=== PATIENT | female | born 1980 | race African-American/Black ===

== ENCOUNTER 2016-06-17 10:54 | Emergency (ER) | payer OTHER ==
[~2016-06-17 10:54] MED LIST: AMOX1TAB61 PO; CLIN300C86 PO; FURO-68 PO; FURO-69 PO; HYDR-2762 PO; HYDR-971 PO; LISI-334 PO; LISI10TA2 PO; NYST30PO9 TP; OXYC-323 PO; POTA10TA31 PO; POTA20TA4 PO; TRAM50TA PO
[2016-06-17] MEDS ORDERED: HYDR-971 PO (11:43)
[2016-06-17] MEDS ORDERED: SULF1TAB24 PO (11:43)
[2016-06-17 11:50] VITALS: BP 158/96
--- NOTE | 2016-06-17 12:21 | ED.ADGEN ---
Past History Past Medical History: Anxiety, Bronchitis, COPD, Hypertension Past Surgical History: No Surgical History Smoking: Less than 1pk/day Alcohol Use: Rarely Drug Use: None Adult General HPI HPI Patient is a 35-year-old female presents emergency department complaining of a wound to her left leg. Patient has a history of chronic lymphedema and poor circulation to the area. She states that when may benefit for some time which she just started noticing the drainage yesterday. She denies any purulence but has noticed fluid from the wound. Denies any known trauma or injury to the area. Review of Systems Review of Systems Constitutional: Denies fever or chills [] Eyes: Denies change in visual acuity, redness, or eye pain [] HENT: Denies nasal congestion or sore throat [] Respiratory: Denies cough or shortness of breath [] Cardiovascular: No additional information not addressed in HPI [] GI: Denies abdominal pain, nausea, vomiting, bloody stools or diarrhea [] : Denies dysuria or hematuria [] Musculoskeletal: Denies back pain or joint pain [] Integument: Denies rash or skin lesions [] Neurologic: Denies headache, focal weakness or sensory changes [] Endocrine: Denies polyuria or polydipsia [] Allergies Allergies Allergies Coded Allergies Type Severity Reaction Last Updated Verified ketorolac Allergy Intermediate Palpitations 04/10/15 Yes morphine Allergy Intermediate Nausea and Vomiting 06/26/13 Yes tramadol Allergy Intermediate Palpitations 04/10/15 Yes Iodinated Contrast Media - IV Dye Allergy Mild Hives 04/20/15 Yes Physical Exam Physical Exam Constitutional: Well developed, well nourished, no acute distress, non-toxic appearance. [] HENT: Normocephalic, atraumatic, bilateral external ears normal, oropharynx moist, no oral exudates, nose normal. [] Eyes: PERRLA, EOMI, conjunctiva normal, no discharge. [] Neck: Normal range of motion, no tenderness, supple, no stridor. [] Cardiovascular:Heart rate regular rhythm, no murmur [] Lungs & Thorax: Bilateral breath sounds clear to auscultation [] Abdomen: Bowel sounds normal, soft, no tenderness, no masses, no pulsatile masses. [] Skin: Warm, dry, no erythema, no rash. 2 x 2 cm area of open wound on the left anterior tibia. There is granulation tissue and I do not see any purulence at this time [] Back: No tenderness, no CVA tenderness. [] Extremities: No tenderness, no cyanosis, no clubbing, ROM intact, no edema. [] Neurologic: Alert and oriented X 3, normal motor function, normal sensory function, no focal deficits noted. [] Psychologic: Affect normal, judgement normal, mood normal. [] EKG EKG [] Radiology/Procedures Radiology/Procedures [] Course & Med Decision Making Course & Med Decision Making Pertinent Labs and Imaging studies reviewed. (See chart for details) Although I am not commenced at the areas infected currently, the patient is high risk for cellulitis and infection. Consequently I am going to cover her with some Bactrim. She does have a follow-up appointment with her primary care physician already scheduled in the next couple of days. [] Final Impression Final Impression Cellulitis [] Problems: Dragon Disclaimer Dragon Disclaimer This electronic medical record was generated, in whole or in part, using a voice recognition dictation system. PRIMITIVO CARMEN MD Jun 17, 2016 12:21
== END 2016-06-17 11:50 | disposition home or self-care (01) ==
LOC: ER 10:54
DX: L03.116 Cellulitis of left lower limb (principal); J44.9 Chronic obstructive pulmonary disease, unspecified; I10 Essential (primary) hypertension; Z87.891 Personal history of nicotine dependence; Z88.5 Allergy status to narcotic agent; Z88.8 Allergy status to other drugs, medicaments and biological substances; Z88.6 Allergy status to analgesic agent; Z91.041 Radiographic dye allergy status
CPT/HCPCS: 99283

== ENCOUNTER 2016-07-19 13:32 | Emergency (ER) | payer MEDICAID, OTHER ==
[~2016-07-19] VITALS: Ht 165.1 cm; Wt 146.4 kg
[~2016-07-19 13:32] MED LIST changes: +SULF1TAB24 PO
[2016-07-19 13:35] VITALS: BP 154/110
--- NOTE | 2016-07-19 14:01 | PHYS DOC ---
Past History Past Medical History: Anxiety, Bronchitis, COPD, Hypertension Past Surgical History: No Surgical History Smoking: Less than 1pk/day Alcohol Use: Rarely Drug Use: None Adult General Chief Complaint Chief Complaint: LOWER EXT PAIN HPI HPI Patient is a 35-year-old female complaining of exacerbation of pain and drainage from her left leg. Patient has chronic leg edema and related skin changes. Patient states that she has noticed a recent worsening smell, increased pain, and drainage from an area on the anterior lower leg. She said she was here a few weeks ago with a similar problem and got a prescription for Bactrim which did help but the problem is back again. She does not have a primary medical doctor and has never been seen in wound clinic. Patient also complains of pain in her tooth. She last saw a dentist about one month ago but it was for another tooth. This tooth pain started recently. Patient denies fever or chills. Review of Systems Review of Systems Constitutional: Denies fever or chills [] Respiratory: Denies cough or shortness of breath [] Cardiovascular: Bilateral lower extremity edema is chronic and unchanged Musculoskeletal: Denies back pain or joint pain [] Integument: Skin changes on the lower legs are chronic. Allergies Allergies Allergies Coded Allergies Type Severity Reaction Last Updated Verified ketorolac Allergy Intermediate Palpitations 04/10/15 Yes morphine Allergy Intermediate Nausea and Vomiting 06/26/13 Yes tramadol Allergy Intermediate Palpitations 04/10/15 Yes Iodinated Contrast Media - IV Dye Allergy Mild Hives 04/20/15 Yes Physical Exam Physical Exam Constitutional: Well developed, well nourished, morbidly obese, alert, mentating normally HENT: Normocephalic, atraumatic, bilateral external ears normal, oropharynx moist, no oral exudates, nose normal. Patient indicates tooth pain in the right upper posterior molar. I do not see any DKA, any surrounding cellulitis or evidence of infection, no visible abnormality of that tooth or surrounding gum. Eyes: conjunctiva normal, no discharge. [] Neck: Normal range of motion, no stridor. [] Skin: Warm, dry, no erythema, no rash. [] Extremities: Left leg below the knee has extreme lymphedema that appears chronic , severe, chronic discoloration and lichenification, an area of discolored skin on the anterior middle lower leg that the patient indicates appears new or different, does not appear to have findings of acute cellulitis, no drainage, no acute abnormality is noted. Neurologic: Alert and oriented X 3, normal motor function, normal sensory function, no focal deficits noted. [] EKG EKG [] Radiology/Procedures Radiology/Procedures [] Course & Med Decision Making Course & Med Decision Making Pertinent Labs and Imaging studies reviewed. (See chart for details) 35-year-old female with chronic very severe lymphedema of the legs with significant chronic skin changes and recurrent cellulitis presents with a subjective change in appearance of the area on the left lower leg. Although I do not personally see objective evidence of cellulitis, the patient does complain of a change so I advised her we can give her a course of Bactrim. She also complained of tooth pain and I urged her to see a dentist as soon as possible. Elevation, ibuprofen as needed for pain. Patient states that she does tolerate ibuprofen safely. I urged her to get a primary care physician as soon as possible. [] Dragon Disclaimer Dragon Disclaimer This chart was dictated in whole or in part using Voice Recognition software in a busy, high-work load, and often noisy Emergency Department environment. It may contain unintended and wholly unrecognized errors or omissions. Departure Departure: Impression: Primary Impression: Cellulitis Additional Impression: Dentalgia Disposition: HOME, SELF-CARE Condition: STABLE Referrals: BLOSSOM CARTER (PCP) Additional Instructions: For chronic left leg problems, as we discussed, asked your primary care physician for a referral to wound management. Stay off of the leg and keep it elevated. Because you have noticed a change and the appearance, we will prescribe Bactrim, antibiotic. Also I recommend that you purchase chlorhexidine soap [id number] and use that daily when you shower or bathe to keep the bacteria count down on your skin. For dental pain, as we discussed, see dentist as soon as possible. For pain, ibuprofen 800 mg every 8 hours as needed. Scripts Sulfamethoxazole/Trimethoprim (Bactrim Ds Tablet)1 Each Tablet1 Tab PO BID #20 TAB For leg infection Prov:CHANTELL RAY MD 07/19/16 Problem Qualifiers CHANTELL RAY MD Jul 19, 2016 14:01
[2016-07-19] MEDS ORDERED: SULF1TAB24 PO (14:02)
== END 2016-07-19 14:15 | disposition home or self-care (01) ==
LOC: ER 13:32
DX: L03.116 Cellulitis of left lower limb (principal); K08.89 Other specified disorders of teeth and supporting structures; I10 Essential (primary) hypertension; F17.200 Nicotine dependence, unspecified, uncomplicated; J44.9 Chronic obstructive pulmonary disease, unspecified; Z88.5 Allergy status to narcotic agent; Z88.8 Allergy status to other drugs, medicaments and biological substances; Z88.6 Allergy status to analgesic agent; Z91.041 Radiographic dye allergy status
CPT/HCPCS: 99283

== ENCOUNTER 2016-09-10 12:58 | Emergency (ER) | payer MEDICAID, OTHER ==
[~2016-09-10 12:58] MED LIST changes: +CLIN300C8 PO; -CLIN300C86 PO; +NYST15PO9 TP; -NYST30PO9 TP
[2016-09-10] MEDS ORDERED: BACI1OIN5 TP (13:31)
--- NOTE | 2016-09-10 13:31 | PHYS DOC ---
Past History Past Medical History: Hypertension Past Surgical History: No Surgical History Smoking: Less than 1pk/day Alcohol Use: None Drug Use: None Adult General Chief Complaint Chief Complaint: LOWER EXT PAIN HPI HPI 36-year-old female presenting to the emergency department today with a wound on her left valente. She reports this wound coming going throughout the last 6 months. She reports it gets better sometimes and over the past week or so it has gotten worse this time. She uses an over the counter topical ointment and dressings. She describes the pain in the wound that is moderate intermittent and worse with walking. She denies fevers or chills and denies any other symptoms. Review of systems is negative for chest pain shortness of breath abdominal pain fevers headaches nausea or vomiting. All other review of systems is negative unless otherwise noted in history of present illness. ED course: 36-year-old female presenting to the emergency department with a left chronic diabetic vs vascular wound. The patient denies having diabetes however does not remember which testing performed to check. I recommended the patient be seen in our wound care clinic and referred her to them for chronic wound care management. Until then, the patient continues topical bacitracin ointment and clean sterile dressings changed twice a day. The patient was then discharged home in stable condition. They were to return if their symptoms worsened or if they were concerned for any reason. [id number] discharge instructions and return precautions were given. Patient's questions were answered to their satisfaction. Patient is comfortable plan. Review of Systems Review of Systems SEE ABOVE. Allergies Allergies Allergies Coded Allergies Type Severity Reaction Last Updated Verified ketorolac Allergy Intermediate Palpitations 04/10/15 Yes morphine Allergy Intermediate Nausea and Vomiting 06/26/13 Yes tramadol Allergy Intermediate Palpitations 04/10/15 Yes Iodinated Contrast Media - IV Dye Allergy Mild Hives 04/20/15 Yes Physical Exam Physical Exam Constitutional: Well developed, well nourished, no acute distress, non-toxic appearance. [] HENT: Normocephalic, atraumatic, bilateral external ears normal, oropharynx moist, no oral exudates, nose normal. [] Eyes: PERRLA, EOMI, conjunctiva normal, no discharge. [] Neck: Normal range of motion, no tenderness, supple, no stridor. [] Cardiovascular:Heart rate regular rhythm, no murmur [] Lungs & Thorax: Bilateral breath sounds clear to auscultation [] Abdomen: Bowel sounds normal, soft, no tenderness, no masses, no pulsatile masses. [] Skin: The patient has a large wound that is approximately 8 cm x 8 cm on the anterior tibial region with macerated tissue. There is no associated cellulitis or erythema. The patient's legs are morbidly obese. The wound does not track down to the bone. It appears more chronic than acute in nature. Otherwise no other rashes noted. Back: No tenderness, no CVA tenderness. [] Extremities: No tenderness, no cyanosis, no clubbing, ROM intact, no edema. [] Neurologic: Alert and oriented X 3, normal motor function, normal sensory function, no focal deficits noted. [] Psychologic: Affect normal, judgement normal, mood normal. [] EKG EKG [] Radiology/Procedures Radiology/Procedures [] Course & Med Decision Making Course & Med Decision Making Pertinent Labs and Imaging studies reviewed. (See chart for details) [] Dragon Disclaimer Dragon Disclaimer This chart was dictated in whole or in part using Voice Recognition software in a busy, high-work load, and often noisy Emergency Department environment. It may contain unintended and wholly unrecognized errors or omissions. Departure Departure: Impression: Primary Impression: Pain, foot, left, chronic Additional Impression: Leg wound, left Disposition: 01 HOME, SELF-CARE Condition: STABLE Referrals: BLOSSOM CARTER (PCP) Patient Instructions: Wound Care, [id number], Wound Check Additional Instructions: Thank you for allowing us to participate in your care today. Followup with our wound clinic. See below: [facility] has recently opened the first phase of its advanced Wound Care Center, providing much needed expert wound care for area patients close to home. There were no other wound clinics in the surrounding communities , making it necessary for patients to commute outside the area for treatments several times a week. The Center, located in [address] of the [facility] on the [facility], the facility includes four examination rooms where patients receive care Mondays through Fridays, 8 a.m. to 4 p.m. Patient appointments can be scheduled at [phone]. "There has been a huge need in our community for this service," says Maria Ines Contreras, [employer]. "According to the [place] [employer], there are more than 30,000 diabetics in [facility] combined, with approximately 5100 of those having chronic wounds. Now these patients can receive their care without leaving their community," Ben says. She also notes that there are plans to add two hyperbaric chambers for more intense treatments in early 2016. Many wound care patients often have other serious health conditions that complicate their medical treatment. "Because these patients can require complex medical care, it is critical we work as a team with the patient's primary care provider to help them heal," Ben says. Geri Mixon R.N., B.S.N., C.W.C.N., is the certified wound care nurse who staffs the center. Certification ensures that she is knowledgeable and qualified to provide this specialized care. Patrick Apodaca MD, general surgeon, provides medical supervision for patients. Because this type of wound care takes place over weeks - even months- the care team often experiences a special song with patients during the treatment process. "I'm excited about the opportunity to be part of our wound care team," says Oral. "It will be very gratifying to work with our patients to heal their wounds." Typical diagnoses seen in the [facility] include: Venous/arterial/lower extremity ulcers Diabetic foot ulcers Pressure ulcers (bed sores) Non-healing surgical wounds Autoimmune wounds Minor fernando Treatments available include: Wound debridement Dressing changes Compression therapy Physician visits Wound vacs Advanced wound care products Bioengineered skin tissues For more information about the [facility] [place], call , or visit [email or web address]. Call your Primary Doctor tomorrow and inform them of your visit today. If you do not have a primary care provider you can ask for a list of our primary care providers. Return to the emergency department you have any new or concerning findings. This should be evaluated by the primary care physician and any necessary consulting services for continued management within a few days after discharge. Return to emergency room if you have any new or concerning symptoms including but not limited to fever, chills, nausea, vomiting, intractable pain, any new rashes, chest pain, shortness of air, uncontrolled bleeding, difficulty breathing, and/or vision loss. Scripts Bacitracin Zinc (Bacitracin Zinc) 1 Each Oint..ea. 1 EACH TP BID for 5 Days, [facility] Prov: CHRISSIE WARD MD 09/10/16 Problem Qualifiers CHRISSIE WARD MD Sep 10, 2016 13:31
[2016-09-10] MEDS ORDERED: HYDR-2758 PO (13:41)
[2016-09-10] MEDS: HYDROcodone/APAP 5/325MG 1 TAB TABLET PO ONE (14:00)
[2016-09-10 14:52] VITALS: BP 151/100
== END 2016-09-10 14:56 | disposition home or self-care (01) ==
LOC: ER 12:58
DX: S81.802A Unspecified open wound, left lower leg, initial encounter (principal); M79.672 Pain in left foot; I10 Essential (primary) hypertension; F17.200 Nicotine dependence, unspecified, uncomplicated; Z88.5 Allergy status to narcotic agent; Z88.8 Allergy status to other drugs, medicaments and biological substances; Z88.6 Allergy status to analgesic agent; Z91.041 Radiographic dye allergy status; X58.XXXA Exposure to other specified factors, initial encounter; Y93.89 Activity, other specified; Y99.8 Other external cause status; Y92.89 Other specified places as the place of occurrence of the external cause
CPT/HCPCS: 99283

== ENCOUNTER 2016-10-16 14:06 | Emergency (ER) | payer OTHER ==
[~2016-10-16 14:06] MED LIST changes: +BACI1OIN5 TP; +HYDR-2758 PO
[2016-10-16 14:26] VITALS: BP 150/89
[2016-10-16] MEDS ORDERED: HYDR-2758 PO (14:50)
--- NOTE | 2016-10-16 14:50 | PHYS DOC ---
Past History Past Medical History: Hypertension Past Surgical History: No Surgical History Smoking: Less than 1pk/day Alcohol Use: None Drug Use: None Adult General Chief Complaint Chief Complaint: KNEE INJURY HPI HPI 82-year-old female presenting to the emergency department today after sustaining a mechanical fall last night. She reports landing on her left knee and having pain in her knee that is throbbing moderate pain without alleviating or exacerbating factors. She previously was seen by myself for a wound for which she has been seen by the wound clinic and reports significant healing of the wound. She reports that the pain is worse when she walks. Review of systems is negative for hip pain abdominal pain and ankle pain or foot pain. All other review of systems is negative unless otherwise noted in history of present illness. ED course: 36-year-old female presenting to the emergency department today with left knee pain. X-rays obtained. X-rays show chronic degenerative changes. The patient was then discharged home in stable condition to follow up with their primary care physician over the next 2-3 days. I also placed a referral to our orthopedic surgeons within the next 7 days to evaluate the patient. They were to return if their symptoms worsened or if they were concerned for any reason. [id number] discharge instructions and return precautions were given. Patient' s questions were answered to their satisfaction. Patient is comfortable plan. Review of Systems Review of Systems SEE ABOVE. Current Medications Current Medications Current Medications Medications (Trade) Dose Ordered Sig/[facility] Start Time Stop Time Status Last Admin Dose Admin Acetaminophen/ Hydrocodone Bitart (Lortab 5/325) 2 tab 1X ONCE 10/16/16 14:45 10/16/16 14:46 UNV Allergies Allergies Allergies Coded Allergies Type Severity Reaction Last Updated Verified ketorolac Allergy Intermediate Palpitations 04/10/15 Yes morphine Allergy Intermediate Nausea and Vomiting 06/26/13 Yes tramadol Allergy Intermediate Palpitations 04/10/15 Yes Iodinated Contrast Media - IV Dye Allergy Mild Hives 04/20/15 Yes Physical Exam Physical Exam Constitutional: Well developed, well nourished, no acute distress, non-toxic appearance. [] HENT: Normocephalic, atraumatic, bilateral external ears normal, oropharynx moist, no oral exudates, nose normal. [] Eyes: PERRLA, EOMI, conjunctiva normal, no discharge. [] Neck: Normal range of motion, no tenderness, supple, no stridor. [] Cardiovascular:Heart rate regular rhythm, no murmur [] Lungs & Thorax: Bilateral breath sounds clear to auscultation [] Abdomen: Bowel sounds normal, soft, no tenderness, no masses, no pulsatile masses. [] Skin: Warm, dry, no erythema, no rash. [] Back: No tenderness, no CVA tenderness. [] Extremities: No tenderness, no cyanosis, no clubbing, ROM intact, no edema. [] Neurologic: Alert and oriented X 3, normal motor function, normal sensory function, no focal deficits noted. [] Psychologic: Affect normal, judgement normal, mood normal. [] Current Patient Data Vital Signs Vital Signs Date Time Temp Pulse Resp B/P (MAP) Pulse Ox O2 Delivery O2 Flow Rate FiO2 10/16/16 14:26 99.7 94 22 96 Room Air EKG EKG [] Radiology/Procedures Radiology/Procedures [] Course & Med Decision Making Course & Med Decision Making Pertinent Labs and Imaging studies reviewed. (See chart for details) [] Dragon Disclaimer Dragon Disclaimer This chart was dictated in whole or in part using Voice Recognition software in a busy, high-work load, and often noisy Emergency Department environment. It may contain unintended and wholly unrecognized errors or omissions. Departure Departure: Impression: Primary Impression: Left knee pain Disposition: HOME, SELF-CARE Condition: STABLE Referrals: BLOSSOM CARTER (PCP) HILARIO TELLEZ MD Patient Instructions: Knee Pain Additional Instructions: Thank you for allowing us to participate in your care today. Followup with your primary care physician in 3 days if your symptoms do not improve. I have also referred due to our orthopedic surgeon Dr. Nowak to be seen in the next 7 days. Call your Primary Doctor tomorrow and inform them of your visit today. If you do not have a primary care provider you can ask for a list of our primary care providers. Return to the emergency department you have any new or concerning findings. This should be evaluated by the primary care physician and any necessary consulting services for continued management within a few days after discharge. Return to emergency room if you have any new or concerning symptoms including but not limited to fever, chills, nausea, vomiting, intractable pain, any new rashes, chest pain, shortness of air, uncontrolled bleeding, difficulty breathing, and/or vision loss. You may have been prescribed medication that can change in your level of thinking and ability to operate machinery. These medications include hydrocodone and Ativan. Also, Benadryl has been known to do this as well. Be sure to check with your pharmacist and ask if the medications you've prescribed can affect your level of consciousness. I recommend not operating heavy machinery or driving while on medication such as these. Scripts Hydrocodone Bit/Acetaminophen (HYDROCODONE-APAP 5-325 ) 1 Each Tablet 1 TAB PO PRN Q6HRS Y for PAIN, #8 TAB 0 Refills Prov: CHRISSIE WARD MD 10/16/16 CHRISSIE WARD MD Oct 16, 2016 14:50
[2016-10-16] MEDS ORDERED: HYDROcodone/APAP 5/325MG 1 TAB TABLET PO ONE (15:00)
--- NOTE | 2016-10-16 15:01 | RAD ---
Left knee, 3 views, 10/16/2016: History: Knee pain There is moderate spurring at the knee joint and at the patellofemoral articulation. There is mild lateral subluxation of the tibia relative to the distal femur, likely chronic. No acute fracture is identified. There is extensive diffuse subcutaneous edema about the knee. IMPRESSION: Moderate degenerative change at the left knee with mild associated lateral subluxation of the tibia.
== END 2016-10-16 15:45 | disposition home or self-care (01) ==
LOC: ER 14:06
DX: M25.562 Pain in left knee (principal); I10 Essential (primary) hypertension; F17.200 Nicotine dependence, unspecified, uncomplicated; Z88.5 Allergy status to narcotic agent; Z88.8 Allergy status to other drugs, medicaments and biological substances; Z88.6 Allergy status to analgesic agent; Z91.041 Radiographic dye allergy status; W19.XXXA Unspecified fall, initial encounter; Y93.89 Activity, other specified; Y92.89 Other specified places as the place of occurrence of the external cause; Y99.8 Other external cause status
CPT/HCPCS: 73564; 99284

== ENCOUNTER 2017-02-21 13:25 | Emergency (ER) | payer OTHER ==
[~2017-02-21] VITALS: Ht 165.1 cm; Wt 146.4 kg
[2017-02-21 13:40] VITALS: BP 126/98
--- NOTE | 2017-02-21 14:26 | PHYS DOC ---
Past History Past Medical History: Hypertension Past Surgical History: No Surgical History Smoking: Less than 1pk/day Alcohol Use: None Drug Use: None Adult General Chief Complaint Chief Complaint: ABDOMINAL PAIN HPI HPI Patient is a [36] year old [female who presents with complaining of abdominal pain. Patient states she developed epigastric and right upper quadrant sharp pain after drinking a soda 3 days ago as a constant pain with radiation to right shoulder and associated with nausea and anorexia and 2 episodes of nonbloody vomiting. She states the pain getting worse with eating and movement and complaining of subjective fever. Patient denies urinary symptoms and diarrhea and constipation and history of the same pain. Patient did not have history of cholecystectomy or abdominal surgery. Patient rated her pain 8/10. Review of Systems Review of Systems Constitutional: Denies chills, reports subjective fever [] Eyes: Denies change in visual acuity, redness, or eye pain [] HENT: Denies nasal congestion or sore throat [] Respiratory: Denies cough or shortness of breath [] Cardiovascular: No additional information not addressed in HPI [] GI: Reports abdominal pain, nausea, vomiting, denies bloody stools or diarrhea [ ] : Denies dysuria or hematuria [] Musculoskeletal: Denies back pain or joint pain [] Integument: Denies rash or skin lesions [] Neurologic: Denies headache, focal weakness or sensory changes [] Endocrine: Denies polyuria or polydipsia [] All other systems were reviewed and found to be within normal limits, except as documented in this note. Allergies Allergies Allergies Coded Allergies Type Severity Reaction Last Updated Verified ketorolac Allergy Intermediate Palpitations 04/10/15 Yes morphine Allergy Intermediate Nausea and Vomiting 06/26/13 Yes tramadol Allergy Intermediate Palpitations 04/10/15 Yes Iodinated Contrast Media - IV Dye Allergy Mild Hives 04/20/15 Yes Physical Exam Physical Exam Constitutional: Mild distress, morbidly obese, non-toxic appearance. [] HENT: Normocephalic, atraumatic, bilateral external ears normal, oropharynx moist, no oral exudates, nose normal. [] Eyes: PERRLA, EOMI, conjunctiva normal, no discharge. [] Neck: Normal range of motion, no tenderness, supple, no stridor. [] Cardiovascular:Heart rate regular rhythm, no murmur [] Lungs & Thorax: Bilateral breath sounds clear to auscultation [] Abdomen: Bowel sounds normal, soft, no tenderness, no masses, no pulsatile masses. [] Skin: Warm, dry, no erythema, no rash. [] Back: No tenderness, no CVA tenderness. [] Extremities: lymphedema with elephantiasis Neurologic: Alert and oriented X 3, normal motor function, normal sensory function, no focal deficits noted. [] Psychologic: Affect normal, judgement normal, mood normal. [] EKG EKG EKG at 1425 showed sinus tachycardia rate 101, prolonged ND interval, left atrial abnormality, poor R-wave progress in anteroseptal leads Radiology/Procedures Radiology/Procedures [] Course & Med Decision Making Course & Med Decision Making Pertinent Labs and Imaging studies reviewed. (See chart for details) [Patient has frequent emergency room visits and drug-seeking behavior with complaining of abdominal pain and unremarkable physical exam except for anemia and morbid obesity. Labs showed chronic anemia with hemoglobin of 7.5 and she states she seen by her primary care physician with anemia. Patient instructed to follow-up with her PCP for further evaluation. Dragon Disclaimer Dragon Disclaimer This electronic medical record was generated, in whole or in part, using a voice recognition dictation system. Departure Departure: Impression: Primary Impression: Abdominal pain Additional Impressions: Anemia Morbid obesity Disposition: HOME, SELF-CARE Condition: IMPROVED Referrals: BLOSSOM CARTER (PCP) Follow-up with a primary care physician in 3-5 days Patient Instructions: Abdominal Pain (Nonspecific), Anemia, FAQs Scripts [Percogesic] No Conflict Check TAB PO TID PRN Y for PAIN, #14 Prov: MIRNA PLASCENCIA MD 02/21/17 Problem Qualifiers MIRNA PLASCENCIA MD Feb 21, 2017 14:26
[2017-02-21] MEDS ORDERED: IV NORMAL SALINE 500ML 500 ML IV ONE (14:30)
[2017-02-21] MEDS ORDERED: ONDANSETRON PF 4 MG/2 ML VIAL. IV ONE (14:30)
[2017-02-21 14:44] LABS: BASO % 0 % (0-3); EOS # 0.1 x10^3/uL (0.0-0.7); EOS % 2 % (0-3); HEMATOCRIT 25.3 % (36.0-47.0); HEMOGLOBIN 7.5 g/dL (12.0-15.5); LYMPH # 1.4 x10^3/uL (1.0-4.8); LYMPH % 19 % (24-48); MEAN CORPUSCULAR HEMOGLOBIN 18 pg (25-35); MEAN CORPUSCULAR HGB CONC 30 g/dL (31-37); MEAN CORPUSCULAR VOLUME 62 fL (79-100); MONO % 14 % (0-9); NEUT # 4.8 x10^3uL (1.8-7.7); NEUT % 65 % (31-73); PLATELET COUNT 337 x10^3/uL (140-400); RED BLOOD COUNT 4.11 x10^6/uL (3.50-5.40); RED CELL DISTRIBUTION WIDTH 22.6 % (11.5-14.5); WHITE BLOOD COUNT 7.4 x10^3/uL (4.0-11.0)
[2017-02-21 14:50] LABS: ALBUMIN 3.1 g/dL (3.4-5.0); ALBUMIN/GLOBULIN RATIO 0.7 (1.0-1.7); CALCIUM 8.7 mg/dL (8.5-10.1); CREATININE 0.7 mg/dL (0.6-1.0); GFR 113.9; POTASSIUM 3.4 mmol/L (3.5-5.1); TOTAL BILIRUBIN 0.5 mg/dL (0.2-1.0); TOTAL PROTEIN 7.6 g/dL (6.4-8.2)
--- NOTE | 2017-02-21 15:17 | RAD ---
EXAM: CT abdomen pelvis without contrast. HISTORY: 36-year-old female presents with mid abdominal pain for 4 days. TECHNIQUE: Computed tomographic images of the abdomen and pelvis are obtained without contrast. Multiplanar reformatting was performed. One or more of the following individualized dose reduction techniques were utilized for this examination: 1. Automated exposure control 2. Adjustment of the mA and/or kV according to patient size 3. Use of iterative reconstruction technique COMPARISON: April 08, 2016 FINDINGS: Visualized lung bases demonstrate no acute finding, aside from mild atelectasis. Heart appears mildly enlarged. Evaluation of intra-abdominal and pelvic organs and vascular structures is limited given lack of IV contrast, as well as large patient body habitus. The liver demonstrates no focal abnormality, remaining prominent in size. Gallbladder is not well-visualized. Spleen demonstrates no focal abnormality. The pancreas demonstrates no focal abnormality. Adrenal glands are grossly unremarkable. The kidneys demonstrate no acute interval change. No definite hydronephrosis or nephrolithiasis is seen. No dilated bowel loops are seen to suggest obstruction. Some formed fecal material is present within the colon. The appendix is normal in caliber and air-filled in the lower mid abdomen. The uterus remains enlarged, similar to the previous CT exam. This results in rightward deviation of the urinary bladder, which is otherwise grossly unremarkable. Right adnexa demonstrates no focal abnormality, with a 3.5 cm cystic structure seen in the left adnexa which may represent an ovarian or para-ovarian cyst. There is soft tissue stranding and trace fluid present within the anterior inferior pelvis, near the region of the left adnexa. No loculated fluid collections are seen. Otherwise, no free fluid is seen in the abdomen. No free air is seen. Multiple prominent lymph nodes are seen throughout the retroperitoneum, pelvis and inguinal regions, similar to the previous exam. Aorta is normal in caliber. There is redemonstration of soft tissue stranding and subcutaneous edema within the partially imaged anterior pannus, similar to the previous exam. Degenerative changes are redemonstrated within the visualized spine. IMPRESSION: 1. Nonspecific soft tissue stranding is present within the anterior inferior pelvis, without adjacent bowel abnormality seen. Small amount of free fluid is present near the region of the left adnexa. A probable left ovarian or para-ovarian cyst is seen. 2. Otherwise, similar noncontrast CT appearance of the abdomen and pelvis, detailed above.
[2017-02-21] MEDS ORDERED: HYDROcodone/APAP 5/325MG 1 TAB TABLET PO ONE (15:30)
[2017-02-21] MEDS ORDERED: Percogesic PO (15:44)
--- NOTE | 2017-02-21 17:16 | EKG ---
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
[2017-02-21 22:56] LABS: ANISOCYTOSIS MOD; HYPOCHROMIA MOD; MICROCYTOSIS MOD; OVALOCYTES FEW; PLT ESTIMATE ADEQUATE (ADEQUATE)
== END 2017-02-21 16:22 | disposition home or self-care (01) ==
LOC: ER 13:25
DX: R10.11 Right upper quadrant pain (principal); D64.9 Anemia, unspecified; E66.01 Morbid (severe) obesity due to excess calories; I10 Essential (primary) hypertension; F17.200 Nicotine dependence, unspecified, uncomplicated; Z68.43 Body mass index [BMI] 50.0-59.9, adult; Z88.5 Allergy status to narcotic agent; Z88.6 Allergy status to analgesic agent; Z88.8 Allergy status to other drugs, medicaments and biological substances; Z91.041 Radiographic dye allergy status
CPT/HCPCS: 36415; 74176; 80053; 83690; 84484; 85025; 93005; 96361; 96374; 99285; J2405; J7040

== ENCOUNTER 2017-05-12 23:14 | Emergency (ER) | payer OTHER ==
[~2017-05-12] VITALS: Ht 165.1 cm; Wt 146.4 kg
[~2017-05-12 23:14] MED LIST changes: +Percogesic PO
--- NOTE | 2017-05-12 23:20 | ED.ADGEN ---
Past History Past Medical History: Anemia, Anxiety, Asthma, COPD, Fibromyalgia, Hypertension Past Surgical History: No Surgical History Smoking: Less than 1pk/day Alcohol Use: None Drug Use: None Adult General Chief Complaint Chief Complaint " I am really have ... problems... breathing... tonight.... I ... was at [facility]... the other day... they said I needed ... a transfusion..." HPI HPI Patient is a 36 year old female who presents with generalized abd. pain, dyspnea with acute on set tonight. Pt. reportedly seen at [facility] last week and had reported hemoglobin of 6. Pt. left AMA at that time.. Pt. complaint of dyspnea are chronic and uses Bipap at [facility]. Pt. chronically on oxygen at 3 lit. N/C. No hx of dark stools. Pt. reports past hx of anemia. Pt. denies bad food, trauma, travel, or specific ill contacts. Pt. has morbid obesity. Pt. follows with Jenny Suero.. Pt. still smoke 1 1/2 pack per day. Pt. in marked respiratory distress. Sats. in 70-80% Review of Systems Review of Systems Constitutional: Subjective hx fever or chills [] Eyes: Denies change in visual acuity, redness, or eye pain [] HENT: Denies nasal congestion or sore throat [] Respiratory:Hx of severe shortness of breath [] Cardiovascular: No additional information not addressed in HPI [] GI: Denies abdominal pain, nausea, vomiting, bloody stools or diarrhea [] : Denies dysuria or hematuria [] Musculoskeletal: Denies back pain or joint pain [] Integument: Denies rash or skin lesions [] Neurologic: Denies headache, focal weakness or sensory changes [] Endocrine: Denies polyuria or polydipsia [] All other systems were reviewed and found to be within normal limits, except as documented in this note. Family History Family History Diabetes, obesity Current Medications Current Medications Current Medications Medications (Trade) Dose Ordered Sig/Gris Start Time Stop Time Status Last Admin Dose Admin Albuterol/ Ipratropium (Duoneb) 3 ml 1X ONCE 05/13/17 00:30 05/13/17 00:31 DC Ceftriaxone Sodium (Rocephin Im) 1 gm 1X ONCE 05/13/17 00:30 05/13/17 00:31 DC 05/13/17 00:57 1 GM Diphenhydramine HCl (Benadryl) 25 mg 1X ONCE 05/13/17 01:30 05/13/17 01:31 DC Ondansetron HCl (Zofran) 8 mg 1X ONCE 05/12/17 23:45 05/12/17 23:46 DC 05/13/17 00:56 8 MG Pantoprazole Sodium (Protonix Vial) 40 mg 1X ONCE 05/12/17 23:45 05/12/17 23:46 DC 05/13/17 00:57 40 MG Sodium Chloride 500 ml @ As Directed STK-MED ONCE 05/13/17 03:48 05/13/17 03:49 DC Vancomycin HCl (Vancomycin) 1 gm STK-MED ONCE 05/13/17 03:49 05/13/17 03:50 DC Vancomycin HCl 1 gm/Sodium Chloride 250 ml @ 250 mls/hr 1X ONCE 05/13/17 01:15 05/13/17 02:14 UNV Vancomycin HCl 2 gm/Sodium Chloride 500 ml @ 250 mls/hr 1X ONCE 05/13/17 02:30 05/13/17 04:29 DC 05/13/17 02:30 250 MLS/HR See nursing for home meds Allergies Allergies Allergies Coded Allergies Type Severity Reaction Last Updated Verified ketorolac Allergy Intermediate Palpitations 04/10/15 Yes morphine Allergy Intermediate Nausea and Vomiting 06/26/13 Yes tramadol Allergy Intermediate Palpitations 04/10/15 Yes Iodinated Contrast Media - IV Dye Allergy Mild Hives 04/20/15 Yes Physical Exam Physical Exam Constitutional: Severe distress, HENT: Normocephalic, atraumatic, bilateral external ears normal, oropharynx moist, no oral exudates, nose rhinorrhea Eyes: PERRLA, EOMI, conjunctiva normal, no discharge. [] Neck: Normal range of motion, no tenderness, supple, no stridor. More than 17 inches circumference Cardiovascular: Tachycardia Heart no murmur []PMI to the left Lungs & Thorax: Bilateral breath sounds wheezing, rhonchi, crackles on auscultation [In]severe distress Abdomen: Bowel sounds normal, soft, no tenderness, no masses, no pulsatile masses. Morbidly obese. Large pannus. Skin: Warm, diaphoretic, no erythema, no rash. Cyanotic Back: No tenderness, no CVA tenderness. [] Extremities: No tenderness, no cyanosis, no clubbing, ROM intact, chronic and acute edema. [] Neurologic: Alert and oriented X 3, generalized motor weakness. Psychologic: Affect very anxious judgement poor insight into disease process, mood depressed Current Patient Data Vital Signs Vital Signs Date Time Temp Pulse Resp B/P (MAP) Pulse Ox O2 Delivery O2 Flow Rate FiO2 05/12/17 23:14 99.0 140 50 88 Nasal Cannula 2.0 Lab Results Laboratory Tests Test 05/12/17 23:27 05/12/17 23:48 05/12/17 23:57 05/13/17 00:11 Sodium Level 141 mmol/L (136-145) Potassium Level 4.0 mmol/L (3.5-5.1) Chloride Level 102 mmol/L (98-107) Carbon Dioxide Level 27 mmol/L (21-32) Anion Gap 12 (6-14) Blood Urea Nitrogen 4 mg/dL (7-20) L Creatinine 0.7 mg/dL (0.6-1.0) Estimated GFR (Cockcroft-Gault) 113.9 Glucose Level 179 mg/dL (70-99) H Calcium Level 8.4 mg/dL (8.5-10.1) L Total Bilirubin 0.3 mg/dL (0.2-1.0) Direct Bilirubin 0.1 mg/dL (0.0-0.2) Aspartate Amino Transferase (AST) 18 U/L (15-37) Alanine Aminotransferase (ALT) 13 U/L (14-59) L Alkaline Phosphatase 183 U/L (46-116) H Total Protein 7.9 g/dL (6.4-8.2) Albumin 3.3 g/dL (3.4-5.0) L Lipase 55 U/L (73-393) L Ethyl Alcohol Level 17 mg/dL (0-10) H White Blood Count 13.1 x10^3/uL (4.0-11.0) H Red Blood Count 3.94 x10^6/uL (3.50-5.40) Hemoglobin 6.6 g/dL (12.0-15.5) *L Hematocrit 23.8 % (36.0-47.0) L Mean Corpuscular Volume 61 fL (79-100) L Mean Corpuscular Hemoglobin 17 pg (25-35) L Mean Corpuscular Hemoglobin Concent 28 g/dL (31-37) L Red Cell Distribution Width 23.5 % (11.5-14.5) H Platelet Count 322 x10^3/uL (140-400) Neutrophils (%) (Auto) 88 % (31-73) H Lymphocytes (%) (Auto) 8 % (24-48) L Monocytes (%) (Auto) 3 % (0-9) Eosinophils (%) (Auto) 1 % (0-3) Basophils (%) (Auto) 0 % (0-3) Neutrophils # (Auto) 11.5 x10^3uL (1.8-7.7) H Lymphocytes # (Auto) 1.1 x10^3/uL (1.0-4.8) Monocytes # (Auto) 0.4 x10^3/uL (0.0-1.1) Eosinophils # (Auto) 0.1 x10^3/uL (0.0-0.7) Basophils # (Auto) 0.1 x10^3/uL (0.0-0.2) Segmented Neutrophils % 76 % (35-66) H Band Neutrophils % 15 % (0-9) H Lymphocytes % 8 % (24-48) L Monocytes % 1 % (0-10) Platelet Estimate Adequate (ADEQUATE) Hypochromasia Mod Anisocytosis Mod Microcytosis Mod Prothrombin Time 11.0 SEC (9.4-11.4) Prothrombin Time INR 1.1 (0.9-1.1) PTT 23 SEC (23-33) Lactic Acid Level 3.8 mmol/L (0.4-2.0) H Blood pH 7.40 (7.35-7.45) Blood Gas PCO2 40 mmHg (35-45) Blood Gas PO2 69 mmHg (80-100) L Blood Gas HCO3 24 mmol/L (22-26) Arterial Bld O2 Saturation (Calc) 93 % (92-99) FiO2 36 % Urine Collection Type Unknown Urine Color Yellow Urine Clarity Hazy Urine pH 6.0 Urine Specific Echo 1.025 Urine Protein 100 mg/dl (NEG-TRACE) Urine Glucose (UA) Neg mg/dL (NEG) Urine Ketones (Stick) Neg mg/dL (NEG) Urine Blood Large (NEG) Urine Nitrite Neg (NEG) Urine Bilirubin Neg (NEG) Urine Urobilinogen Dipstick 0.2 mg/dL (0.2 mg/dL) Urine Leukocyte Esterase Small (NEG) Urine RBC >40 /HPF (0-2) Urine WBC 20-40 /HPF (0-4) Urine Squamous Epithelial Cells Mod /LPF Urine Bacteria Few /HPF (0-FEW) Urine Opiates Screen Pos (NEG) Urine Methadone Screen Neg (NEG) Urine Barbiturates Neg (NEG) Urine Phencyclidine Screen Neg (NEG) Urine Amphetamine/Methamphetamine Neg (NEG) Urine Benzodiazepines Screen Neg (NEG) Urine Cocaine Screen Neg (NEG) Urine Cannabinoids Screen Neg (NEG) Urine Ethyl Alcohol Pos (NEG) Test 05/13/17 01:53 05/13/17 03:40 Influenza Type A (Rapid) Negative (NEGATIVE) Influenza Type B (Rapid) Negative (NEGATIVE) Lactic Acid Level 1.7 mmol/L (0.4-2.0) EKG EKG My interpretation of EKG shows a sinus tachycardia at 133 bpm. There is low voltage throughout. . There is anterior strain pattern.[] Radiology/Procedures Radiology/Procedures My interpretation of chest x-ray shows decreased lung volumes. Large cardiac silhouette. Increased cephalization.[] Course & Med Decision Making Course & Med Decision Making Pertinent Labs and Imaging studies reviewed. (See chart for details) Discussed presentation, testing and tx. plan with Dr. Trivedi- will accept pt in transfer to [facility]- for pulmonary and cardiology consults. [] Final Impression Final Impression 1. Abdomen Pain[] 2. Respiratory Failure- Hypoxia 3. Obesity Hypoventilation Syndrome 4. Hx. Sleep Apnea 5. Chest Pain 6. UTI 7. Anemia- microcyctic hypochromic- 8. Elevated Lactic Acid 3.8 9. Sepsis 10. DM 11. Morbid Obesity Problems: Dragon Disclaimer Dragon Disclaimer This electronic medical record was generated, in whole or in part, using a voice recognition dictation system. FINESSE MARRERO MD May 12, 2017 23:20
[2017-05-13 00:03] LABS: ALBUMIN 3.3 g/dL (3.4-5.0); CALCIUM 8.4 mg/dL (8.5-10.1); CREATININE 0.7 mg/dL (0.6-1.0); DIRECT BILIRUBIN 0.1 mg/dL (0.0-0.2); GFR 113.9; TOTAL BILIRUBIN 0.3 mg/dL (0.2-1.0); TOTAL PROTEIN 7.9 g/dL (6.4-8.2)
[2017-05-13 00:20] LABS: BGAS PH 7.4 (7.35-7.45)
[2017-05-13 00:36] LABS: BARBITURATES NEG (NEG); BENZODIAZEPINES NEG (NEG); CANNABINOIDS NEG (NEG); COCAINE NEG (NEG); METHADONE NEG (NEG); OPIATES POS (NEG); PHENCYCLIDINE NEG (NEG)
[2017-05-13 00:37] LABS: AMPHETAMINE/METHAMPHETAMINE NEG (NEG)
[2017-05-13 00:40] LABS: BILIRUBIN,URINE NEG (NEG); CLARITY,URINE HAZY; COLOR,URINE YELLOW; GLUCOSE,URINE NEG (NEG); UROBILINOGEN,URINE 0.2 mg/dL (0.2 mg/dL)
[2017-05-13 00:41] LABS: BACTERIA,URINE FEW /HPF (0-FEW); NITRITE,URINE NEG (NEG); RBC,URINE >40 /HPF (0-2); SQUAMOUS EPITHELIAL CELL,UR MOD /LPF; WBC,URINE 20-40 /HPF (0-4)
[2017-05-13 00:44] LABS: BASO # 0.1 x10^3/uL (0.0-0.2); BASO % 0 % (0-3); EOS # 0.1 x10^3/uL (0.0-0.7); EOS % 1 % (0-3); HEMATOCRIT 23.8 % (36.0-47.0); LYMPH # 1.1 x10^3/uL (1.0-4.8); LYMPH % 8 % (24-48); MEAN CORPUSCULAR HEMOGLOBIN 17 pg (25-35); MEAN CORPUSCULAR HGB CONC 28 g/dL (31-37); MEAN CORPUSCULAR VOLUME 61 fL (79-100); MONO # 0.4 x10^3/uL (0.0-1.1); MONO % 3 % (0-9); NEUT # 11.5 x10^3uL (1.8-7.7); NEUT % 88 % (31-73); PLATELET COUNT 322 x10^3/uL (140-400); RED BLOOD COUNT 3.94 x10^6/uL (3.50-5.40); RED CELL DISTRIBUTION WIDTH 23.5 % (11.5-14.5); WHITE BLOOD COUNT 13.1 x10^3/uL (4.0-11.0)
[2017-05-13] MEDS: IPRATRPIUM/ALBUTEROL 0.5/2.5MG 3 ML NEBU. NEB ONE (00:45)
[2017-05-13 00:56] LABS: HEMOGLOBIN 6.6 g/dL (12.0-15.5)
[2017-05-13] MEDS: diphenhydrAMINE 50 MG/ML VIAL IVP ONE ×2 (00:56→01:30)
[2017-05-13] MEDS: IV NORMAL SALINE 1,000ML 1,000 ML IV SCH ×2 (00:56→02:01)
[2017-05-13] MEDS: ONDANSETRON PF 4 MG/2 ML VIAL. IV ONE (00:56)
[2017-05-13] MEDS: PANTOPRAZOLE IV 40 MG VIAL. IVP ONE (00:57)
[2017-05-13] MEDS: cefTRIAXone IM 1 GM VIAL IM ONE (00:57)
[2017-05-13] MEDS ORDERED: VANCOMYCIN 1 GM in IV NORMAL SALINE 250ML 250 ML IV ONE (01:15)
[2017-05-13] MEDS: IV NORMAL SALINE 1,000ML 1,000 ML IV ONE (01:30)
--- NOTE | 2017-05-13 01:49 | EKG ---
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
[2017-05-13 01:53] LABS: % BANDS 15 % (0-9); % LYMPHS 8 % (24-48); % MONOS 1 % (0-10); % SEGS 76 % (35-66); ANISOCYTOSIS MOD; HYPOCHROMIA MOD; MICROCYTOSIS MOD
[2017-05-13 02:09] LABS: PLT ESTIMATE ADEQUATE (ADEQUATE)
[2017-05-13] MEDS: VANCOMYCIN 2 GM in IV NORMAL SALINE 500ML 500 ML IV ONE (02:30)
[2017-05-13 03:40] LABS: INFLUENZA A PATIENT NEGATIVE (NEGATIVE); INFLUENZA B PATIENT NEGATIVE (NEGATIVE)
[2017-05-13] MEDS ORDERED: IV NORMAL SALINE 500ML 500 ML ONE (03:48)
[2017-05-13] MEDS ORDERED: VANCOMYCIN 1 GM VIAL. ONE (03:49)
[2017-05-13 04:03] VITALS: BP 140/63
--- NOTE | 2017-05-13 07:16 | RAD ---
Portable chest, 05/13/2017: History: Chest and abdominal pain with fever Comparison is made to a study from 04/10/2015. The heart is enlarged. The pulmonary vascularity is at the upper limits of normal. The left lung base is not optimally penetrated due to the patient's large size. No definite pulmonary infiltrate or pleural fluid is seen. IMPRESSION: Cardiomegaly with borderline vascular congestion
== END 2017-05-13 04:45 | disposition short-term general hospital (02) ==
LOC: ER 23:14
DX: A41.9 Sepsis, unspecified organism (principal); R65.20 Severe sepsis without septic shock; J96.01 Acute respiratory failure with hypoxia; R74.0 Nonspecific elevation of levels of transaminase and lactic acid dehydrogenase [LDH]; N39.0 Urinary tract infection, site not specified; E11.9 Type 2 diabetes mellitus without complications; D53.9 Nutritional anemia, unspecified; D50.9 Iron deficiency anemia, unspecified; E66.2 Morbid (severe) obesity with alveolar hypoventilation; Z68.43 Body mass index [BMI] 50.0-59.9, adult; F41.9 Anxiety disorder, unspecified; I10 Essential (primary) hypertension; J44.9 Chronic obstructive pulmonary disease, unspecified; M79.7 Fibromyalgia; F17.200 Nicotine dependence, unspecified, uncomplicated; Z99.81 Dependence on supplemental oxygen; Z88.5 Allergy status to narcotic agent; Z88.8 Allergy status to other drugs, medicaments and biological substances; Z88.6 Allergy status to analgesic agent; Z91.041 Radiographic dye allergy status
CPT/HCPCS: 36415; 36600; 51702; 71045; 80048; 80076; 80307; 81001; 82803; 83605; 83690; 85007; 85025; 85045; 85610; 85730; 86900; 86901; 87040; 87086; 87804; 93005; 96360; 96361; 96365; 96366; 96372; 96375; 99285; C9113; G0480; J0696; J1200; J2405; J3370; J7040; G0479; J7030

== ENCOUNTER 2017-07-27 17:31 | Inpatient (IN) | payer OTHER ==
[~2017-07-27] VITALS: Ht 162.6 cm; Wt 152.1 kg
--- NOTE | 2017-07-27 17:39 | ED.ADGEN ---
Past History Past Medical History: Anemia, Anxiety, Asthma, COPD, Fibromyalgia, Hypertension Past Surgical History: No Surgical History Smoking: Less than 1pk/day Alcohol Use: None Drug Use: None Adult General Chief Complaint Chief Complaint ".. I ve been around some sick grand babies.. and I got it .. coughing up stuff... fever.. chills..." HPI HPI Patient is a 46 year old female who presents with above hx , complaints increased dyspnea, productive discolored sputum and fever. Pt. has hx Obesity Hypoventilation and requires oxygen at 2 liters at night. Pt. has been around sick children. They have gotten better, but she has not. Pt. Morbid obese. Pt. normally follows with [facility] for care. Pt. does continue to smoke. Pt. denies immunosuppression,. Pt. denies travel. Pt has chronic woody edema. Review of Systems Review of Systems Constitutional: Complaints of fever or chills [] Eyes: Denies change in visual acuity, redness, or eye pain [] HENT: Denies nasal congestion or sore throat [] Respiratory: Hx. of cough and shortness of breath [] Cardiovascular: No additional information not addressed in HPI [] GI: Denies abdominal pain, nausea, vomiting, bloody stools or diarrhea [] : Denies dysuria or hematuria [] Musculoskeletal: Denies back pain or joint pain [] Integument: Denies rash or skin lesions [] Neurologic: Denies headache, focal weakness or sensory changes [] Endocrine: Denies polyuria or polydipsia [] All other systems were reviewed and found to be within normal limits, except as documented in this note. Family History Family History Non-contributory Current Medications Current Medications Current Medications Medications (Trade) Dose Ordered Sig/Gris Start Time Stop Time Status Last Admin Dose Admin Albuterol/ Ipratropium (Duoneb) 3 ml 1X ONCE 07/27/17 18:30 07/27/17 18:33 DC 07/27/17 19:21 3 ML Azithromycin (Zithromax) 500 mg 1X ONCE 07/27/17 18:30 07/27/17 18:33 DC 07/27/17 19:28 500 MG Ceftriaxone Sodium 1 gm/ Sodium Chloride 50 ml @ 100 mls/hr 1X ONCE 07/27/17 18:30 07/27/17 18:33 DC Ceftriaxone Sodium (Rocephin) 1 gm 1X ONCE 07/27/17 18:45 07/27/17 18:46 DC 07/27/17 19:28 1 GM Methylprednisolone Sodium Succinate (SOLU-Medrol 125MG VIAL) 125 mg 1X ONCE 07/27/17 18:30 07/27/17 18:33 DC 07/27/17 19:28 125 MG Ondansetron HCl (Zofran) 4 mg 1X ONCE 07/27/17 19:30 07/27/17 19:31 DC Sodium Chloride 1,000 ml @ 100 mls/hr Q10H 07/27/17 18:30 07/28/17 04:29 07/27/17 19:27 100 MLS/HR Allergies Allergies Allergies Coded Allergies Type Severity Reaction Last Updated Verified ketorolac Allergy Intermediate Palpitations 04/10/15 Yes morphine Allergy Intermediate Nausea and Vomiting 06/26/13 Yes tramadol Allergy Intermediate Palpitations 04/10/15 Yes Iodinated Contrast Media - IV Dye Allergy Mild Hives 04/20/15 Yes Physical Exam Physical Exam Constitutional: Moderately acute distress,ill in appearance. [] HENT: Normocephalic, atraumatic, bilateral external ears normal, oropharynx moist, no oral exudates, nose normal. [] Eyes: PERRLA, EOMI, conjunctiva normal, no discharge. [] Neck: Normal range of motion, no tenderness, supple, no stridor. [] Cardiovascular:Tachycardia Heart rate regular rhythm, no murmur []PMI to Lt. Lungs & Thorax: Bilateral breath sounds apexes with scattered wheezes on auscultation []Basilar crackles and rhonchi. Abdomen: Bowel sounds normal, soft, no tenderness, no masses, no pulsatile masses. Morbid obesity. Skin: Warm, dry, no erythema, no rash. [] Back: No tenderness, no CVA tenderness. [] Extremities: No tenderness, no cyanosis, no clubbing, ROM intact, chronic woody edema. [] Neurologic: Alert and oriented X 3, no gross motor orl sensory function, changes from her baseline. Psychologic: Affect anxious, judgement normal, mood normal. [] Current Patient Data Vital Signs Vital Signs Date Time Temp Pulse Resp B/P (MAP) Pulse Ox O2 Delivery O2 Flow Rate FiO2 5/7/18 19:23 99 07/27/17 18:18 101.4 116 24 Room Air Lab Results Laboratory Tests Test 07/27/17 18:04 07/27/17 18:05 Blood pH 7.37 (7.35-7.45) Blood Gas PCO2 45 mmHg (35-45) Blood Gas PO2 58 mmHg (80-100) L Blood Gas HCO3 26 mmol/L (22-26) Arterial Bld O2 Saturation (Calc) 89 % (92-99) L FiO2 28 % Prothrombin Time 10.5 SEC (9.4-11.4) Prothrombin Time INR 1.0 (0.9-1.1) PTT 25 SEC (23-33) Serum Test, Qualitative Negative (NEG) EKG EKG My interpretation of EKG shows sinus tachy. 119, with occasional PVC, RBB, Strain pattern[] Radiology/Procedures Radiology/Procedures My interpretation of CXR and Abd. Shows cardiomegaly, patchy infiltrates, atele. No free air under diaphragm. [] Course & Med Decision Making Course & Med Decision Making Pertinent Labs and Imaging studies reviewed. (See chart for details). Discussed presentation, testing and tx. plan with Dr. Tadeo- will admit for further tx. and and eval. Labs not available at time of admit because lab. down. [] Final Impression Final Impression 1. Respiratory Failure-Hypoxia/ Hypercarbia 2. Pneumonia 3. COPD 4. Morbid Obesity 5. Chronic/Acute Edema 6. Chronic Edema 7. Elevated Lactic Acid 8. Elevated Alk. Phos. 9. Anemia- Microcytic Hypochromic- Target cells 10. Leukocytosis 11. Elevated Lactic Acid. [] Problems: Dragon Disclaimer Dragon Disclaimer This electronic medical record was generated, in whole or in part, using a voice recognition dictation system. FINESSE MARRERO MD July 27, 2017 17:39
[2017-07-27] MEDS ORDERED: IPRATRPIUM/ALBUTEROL 0.5/2.5MG 3 ML NEBU. NEB ONE (18:30)
[2017-07-27] MEDS ORDERED: methylPREDNISolone SOD SUCC PF 125 MG/2 ML VIAL. IV ONE (18:30)
[2017-07-27] MEDS ORDERED: AZITHROMYCIN 250 MG TABLET. PO ONE (18:30)
[2017-07-27] MEDS ORDERED: IV NORMAL SALINE 1,000ML 1,000 ML IV SCH (18:30)
--- NOTE | 2017-07-27 18:36 | EKG ---
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
[2017-07-27] MEDS ORDERED: cefTRIAXone IV Push 1 GM VIAL. IVP ONE (18:45)
[2017-07-27 18:52] LABS: BGAS PH 7.37 (7.35-7.45)
[2017-07-27 19:21] LABS: BASO % 0 % (0-3); EOS % 0 % (0-3); HEMATOCRIT 34.9 % (36.0-47.0); HEMOGLOBIN 10.3 g/dL (12.0-15.5); LYMPH # 0.6 x10^3/uL (1.0-4.8); LYMPH % 5 % (24-48); MEAN CORPUSCULAR HEMOGLOBIN 20 pg (25-35); MEAN CORPUSCULAR HGB CONC 30 g/dL (31-37); MEAN CORPUSCULAR VOLUME 68 fL (79-100); MONO # 0.4 x10^3/uL (0.0-1.1); MONO % 3 % (0-9); NEUT # 11.6 x10^3uL (1.8-7.7); NEUT % 91 % (31-73); PLATELET COUNT 245 x10^3/uL (140-400); RED BLOOD COUNT 5.16 x10^6/uL (3.50-5.40); WHITE BLOOD COUNT 12.7 x10^3/uL (4.0-11.0)
[2017-07-27 19:23] LABS: PREG TEST PT QUAL NEGATIVE (NEG)
[2017-07-27] MEDS ORDERED: ONDANSETRON PF 4 MG/2 ML VIAL. IV ONE (19:30)
[2017-07-27] MEDS ORDERED: ONDANSETRON PF 4 MG/2 ML VIAL. IV PRN (19:45)
[2017-07-27] MEDS ORDERED: ONDANSETRON ODT 4 MG TAB.RAPDIS ONE (19:55)
[2017-07-27] MEDS ORDERED: ONDANSETRON ODT 4 MG TAB.RAPDIS PO ONE (20:00)
[2017-07-27] MEDS: IPRATRPIUM/ALBUTEROL 0.5/2.5MG 3 ML NEBU. NEB SCH (20:00)
[2017-07-27] MEDS: ENOXAPARIN ** NOTE DOSE ** SYRINGE SQ SCH (20:50)
[2017-07-27] MEDS ORDERED: IPRATRPIUM/ALBUTEROL 0.5/2.5MG 3 ML NEBU. NEB SCH (21:00)
[2017-07-27 21:20] LABS: ALBUMIN 4.3 g/dL (3.4-5.0); DIRECT BILIRUBIN 0.2 mg/dL (0.0-0.2); TOTAL BILIRUBIN 0.7 mg/dL (0.2-1.0); TOTAL PROTEIN 8.2 g/dL (6.4-8.2)
[2017-07-27 21:26] VITALS: BP 151/80
[2017-07-27] MEDS ORDERED: ACETAMINOPHEN 325 MG TABLET PO PRN (21:30)
[2017-07-27] MEDS ORDERED: MELATONIN 3 MG TABLET PO PRN (21:30)
[2017-07-27] MEDS ORDERED: HYDROcodone/APAP 5/325MG 1 TAB TABLET PO PRN (21:30)
[2017-07-27 21:42] LABS: CREATININE 0.5 mg/dL (0.6-1.0)
[2017-07-27] MEDS ORDERED: diphenhydrAMINE HCL 25 MG CAPSULE PO PRN (21:45)
[2017-07-27] MEDS ORDERED: LISI-334 PO (21:46)
[2017-07-27] MEDS ORDERED: MEDR10TA3 PO (21:46)
[2017-07-27] MEDS ORDERED: POTA20TA84 PO (21:46)
[2017-07-27] MEDS ORDERED: FURO20TA3 PO (21:46)
[2017-07-27] MEDS ORDERED: DIPH25CA58 PO (21:46)
[2017-07-27] MEDS ORDERED: AMLO5TAB2 PO (21:46)
[2017-07-27 22:07] LABS: POTASSIUM 3.7 mmol/L (3.5-5.1)
[2017-07-27] MEDS: LISINOPRIL 20 MG TABLET PO SCH (22:20)
[2017-07-27 23:35] VITALS: BP 137/81
[2017-07-27 23:48] LABS: ANISOCYTOSIS MOD; HYPOCHROMIA MOD; MICROCYTOSIS MOD; OVALOCYTES FEW; PLT ESTIMATE ADEQUATE (ADEQUATE); TARGET CELLS PRESENT
[2017-07-28] VITALS (11 sets, daily range): BP systolic 100–154; BP diastolic 47–101
[2017-07-28] MEDS: IPRATRPIUM/ALBUTEROL 0.5/2.5MG 3 ML NEBU. NEB SCH ×2 (04:28→10:10)
[2017-07-28] MEDS ORDERED: POTASSIUM CHLORIDE 20 MEQ TABLET.ER. PO SCH (08:00)
[2017-07-28] MEDS: LISINOPRIL 20 MG TABLET PO SCH (08:58)
[2017-07-28] MEDS: ENOXAPARIN ** NOTE DOSE ** SYRINGE SQ SCH (08:59)
[2017-07-28] MEDS ORDERED: amLODIPine BESYLATE 5 MG TABLET PO SCH (09:00)
[2017-07-28] MEDS ORDERED: methylPREDNISolone SOD SUCC PF 125 MG/2 ML VIAL. IV SCH (09:00)
[2017-07-28] MEDS ORDERED: AZITHROMYCIN 250 MG TABLET. PO SCH (09:00)
[2017-07-28] MEDS ORDERED: FUROSEMIDE 20 MG TABLET PO SCH (09:00)
[2017-07-28] MEDS ORDERED: LACTOBACILLUS RHAMNOSUS GG 1 CAPSULE. PO SCH (09:00)
[2017-07-28 09:30] LABS: BGAS PH 7.04 (7.35-7.45)
--- NOTE | 2017-07-28 09:35 | RAD ---
EXAM: Abdomen, 2 views; chest, 2 views. HISTORY: Pain. COMPARISON: None. FINDINGS: ABDOMEN: Frontal upright and supine views of the abdomen are obtained. There are air-filled loops of bowel throughout the abdomen. There is no transition point to suggest obstruction. There is no free air. There is sacral dysraphism. CHEST: Frontal and lateral views of the chest are obtained. There is mild diffuse increased interstitial opacity. There is no consolidation, effusion or pneumothorax. There is cardiomegaly. IMPRESSION: 1. Nonobstructive bowel gas pattern. 2. Mild diffuse increased interstitial opacity without merissa congestion. 3. Cardiomegaly. Electronically signed by: Emma Delgado MD (07/28/2017 9:32 AM) [id number]
--- NOTE | 2017-07-28 09:50 | RAD ---
EXAM: Chest, single view. HISTORY: Shortness of air. COMPARISON: 07/27/2017 FINDINGS: A frontal view the chest obtained. There is diffuse increased interstitial opacity. There is cardiomegaly. There is no pleural effusion or pneumothorax. IMPRESSION: 1. Diffuse increased interstitial opacity suggesting pulmonary congestion. 2. Cardiomegaly. Electronically signed by: Emma Delgado MD (07/28/2017 9:47 AM) [id number]
[2017-07-28 11:13] LABS: BGAS PH 7.23 (7.35-7.45)
[2017-07-28] MEDS ORDERED: ETOMIDATE 40 MG/20 ML VIAL. IV ONE (12:00)
[2017-07-28] MEDS ORDERED: SUCCINYLCHOLINE 200 MG/10 ML VIAL. ONE (12:00)
[2017-07-28] MEDS ORDERED: PROPOFOL 100 ML IV PRN (12:45)
[2017-07-28] MEDS ORDERED: MIDAZOLAM 100mg/100ml NS BAG 100 ML IV PRN (12:45)
--- NOTE | 2017-07-28 13:02 | RAD ---
Portable chest, 08/17/2017, 12:30 PM: HISTORY: Post intubation Comparison is made to a study from earlier the same day. An ET tube has been inserted with its tip located 4-5 cm above the rj. The NG tube extends into the stomach. The heart is enlarged. The pulmonary vascularity remains prominent. The left hemidiaphragm is obscured. This may be due to the portable technique or left basilar infiltrate. No definite pleural fluid is seen. IMPRESSION: 1. An ET tube and NG tube have been inserted in satisfactory positions. 2. Cardiomegaly with mild vascular congestion Electronically signed by: Hector Zambrano MD (07/28/2017 1:00 PM) [facility]
[2017-07-28] MEDS ORDERED: MIDAZOLAM HCL PF 5 MG/5 ML VIAL. IV ONE (13:30)
[2017-07-28 14:28] LABS: BGAS PH 7.34 (7.35-7.45)
--- NOTE | 2017-07-28 14:47 | SSS ---
ADMIT DATE: 07/28/2017 NOTE: This is a blank dictation. CLIFFORD TAVARES MD DR: Milly JOB#: [id number] / [id number]
--- NOTE | 2017-07-28 15:14 | SSS ---
ADMIT DATE: 07/28/2017 HISTORY OF PRESENT ILLNESS: The patient is a 36-year-old -[place] female patient who came to the Emergency Room complaining of shortness of breath, cough, fever and chills, increased shortness of breath and discolored sputum. She is known to have obesity hypoventilation syndrome, requires oxygen 2 liters at nighttime. She has been around sick children, they have gotten better, but she has not. She unfortunately does continue to smoke. Denied any travel. She was evaluated extensively in the Emergency Room and was diagnosed with hypoxic hypercapnic respiratory failure, pneumonia, COPD exacerbation, morbid obesity and lactic acidosis and microcytic anemia, hypochromic anemia and was basically admitted to start on IV antibiotic in the form of ceftriaxone as well as Zithromax, together with steroid treatment. Unfortunately, she became more and more obtunded and repeat blood gases early this morning showed that her pH was 7.04, pCO2 of 220, pO2 of 60, bicarbonate 32, and oxygen saturation was only 73%. Initially, she was treated with BiPAP; however, she continued to be acidotic and a decision was made to intubate her and to transfer her to [facility] as soon as ambulance arrives to take her to a bed in [facility] ICU. PAST MEDICAL HISTORY: Significant for morbid obesity, obstructive sleep apnea, obesity hypoventilation syndrome, pneumonia. She has a previous history of intubation, mechanical ventilation for which she was admitted to [facility]; however so far, she has not had a formal sleep apnea. Her past medical history is significant for hypertension and congestive heart failure, most likely due to left ventricular diastolic dysfunction. PAST SURGICAL HISTORY: Unremarkable. She apparently is known to have lymphedema, hypertension, hyperlipidemia, anxiety and depression, chronic microcytic hypochromic anemia, fibromyalgia, type 2 diabetes. ALLERGIES: She is allergic to IODINATED CONTRAST, KETOROLAC, MORPHINE and TRAMADOL. MEDICATIONS: She is currently on the following medications: She is on diphenhydramine 25 mg every 6 hours as needed, amlodipine besylate 5 mg once a day, lisinopril 20 mg daily, potassium chloride 20 mEq daily, furosemide 20 mg once a day, medroxyprogesterone acetate 10 mg daily. FAMILY HISTORY: Unremarkable. SOCIAL HISTORY: She lives with her mom. She continues to smoke a pack a day and drinks alcohol heavily. Does not use any drugs. She has a daughter who is . PHYSICAL EXAMINATION: GENERAL: When I saw her this afternoon, she was already intubated, mechanically ventilated on propofol and Versed. She was somewhat pale, but no jaundice, cyanosis, or thyromegaly. No jugular distention. Marked bilateral lymphedema. VITAL SIGNS: Her heart rate was 79, blood pressure was 120/60, temperature was 98, respiratory rate was 18 and oxygen saturation was 96%. HEAD, EYES, EARS, NOSE AND THROAT: She is normocephalic, atraumatic. She has orotracheal and orogastric tubes in place. NECK: Supple. HEART: Showed normal first and second heart sounds. No gallop, rub or murmur. CHEST: Clear to auscultation. No crepitation or rhonchi. ABDOMEN: Distended, soft, nontender. No guarding or rigidity. No organomegaly. Hernial orifice intact. Bowel sounds normal. NEUROLOGIC: She is intubated and mechanically ventilated. She is heavily sedated; however, she is able to move her extremities without difficulty. LABORATORY DATA: On arrival to the Emergency Room showed a white cell count 12,700, hemoglobin 10, hematocrit 35, MCV 68 and platelet count of 245,000. Her chemistry showed a serum sodium of 142, potassium 3.7, chloride 101, bicarbonate was 27, anion gap of 14, BUN 6, creatinine 0.5, estimated GFR was 168 mL per minute. Her calcium was 9. Total bilirubin, AST, ALT, alkaline phosphatase were normal. Her total protein was 8.2, albumin was 4.3. Her amylase was 39 and lipase was only 24. Her first set of blood gases showed a pH of 7.37, pCO2 of 45, pO2 of 68, bicarbonate 26, and oxygen saturation was 89% and FiO2 28% and that actually worsened this morning when she was noted to be obtunded and unresponsive. Her pH was found to be 7.0.4, pCO2 of 120 and pO2 of 60, bicarbonate of 32 and oxygen saturation 73%. Her prothrombin time was 10.5, INR of 1, aPTT was 25. Her chest x-ray showed that the frontal upright and supine views of the abdomen are obtained. Air filled loops of bowel throughout the abdomen. There is no transition point to suggest obstruction. There is no free air. There is sacral dysraphism. The examination of the chest showed that there is mild diffuse increased interstitial opacity. There is no consolidation, effusion or pneumothorax. There is cardiomegaly. ASSESSMENT AND PLAN: In summary, this is a 36-year-old female patient with super morbid obesity with obstructive sleep apnea, was admitted with pneumonia, congestive heart failure due to left ventricular diastolic function. She went into acute hypoxic hypercapnic respiratory failure requiring intubation and mechanical ventilation. She will be transferred to [facility] where she will continue with IV antibiotic, IV Solu-Medrol and nebulized treatment. To consult the gas adjuster, Infectious Disease specialist and decide on further management accordingly. CLIFFORD TAVARES MD DR: GIORGIO/oneal JOB#: [id number] / [id number]
[2017-07-28] MEDS ORDERED: cefTRIAXone IV Push 1 GM VIAL. IVP SCH (19:00)
== END 2017-07-28 15:12 | disposition short-term general hospital (02) | DRG 208 ==
LOC: ER 17:31 → 1 SOUTH 18:20 → ER 21:01 → ICU 07-28 13:12
PROVIDERS: ADMIT Internal Medicine; ATTEND Internal Medicine
PROC: 5A09357 Assistance with Respiratory Ventilation, Less than 24 Consecutive Hours, Continuous Positive Airway Pressure (ICD-10-PCS; principal; 2017-07-28)
PROC: 5A1935Z Respiratory Ventilation, Less than 24 Consecutive Hours (ICD-10-PCS; 2017-07-28)
PROC: 0BH17EZ Insertion of Endotracheal Airway into Trachea, Via Natural or Artificial Opening (ICD-10-PCS; 2017-07-28)
DX: J96.01 Acute respiratory failure with hypoxia (principal); J18.9 Pneumonia, unspecified organism; I11.0 Hypertensive heart disease with heart failure; J44.0 Chronic obstructive pulmonary disease with (acute) lower respiratory infection; E87.2 Acidosis; I50.32 Chronic diastolic (congestive) heart failure; E66.2 Morbid (severe) obesity with alveolar hypoventilation; J44.1 Chronic obstructive pulmonary disease with (acute) exacerbation; J96.02 Acute respiratory failure with hypercapnia; D50.9 Iron deficiency anemia, unspecified; E11.9 Type 2 diabetes mellitus without complications; E78.5 Hyperlipidemia, unspecified; F17.210 Nicotine dependence, cigarettes, uncomplicated; M79.7 Fibromyalgia; F32.9 Major depressive disorder, single episode, unspecified; F41.9 Anxiety disorder, unspecified; Z91.041 Radiographic dye allergy status; Z88.6 Allergy status to analgesic agent; Z87.01 Personal history of pneumonia (recurrent)
CPT/HCPCS: 36415; 36600; 71045; 71046; 74021; 80048; 80061; 80076; 82150; 82553; 82803; 83605; 83690; 83880; 84484; 84703; 85025; 85610; 85730; 87040; 93005; 94640; 94660; 96361; 96374; 96375; 99406; G0238; J0330; J0456; J0696; J1650; J2250; J2704; J2930; J7620; Q0162; Q0163; 99285-25; J7030